=== PATIENT | female | born 1990 | race Caucasian/White ===

== ENCOUNTER 2016-04-24 16:51 | Outpatient (CLI) | payer MEDICAID ==
--- NOTE | 2016-04-24 17:58 | Non Stress Test Report ---
Non Stress Test Datetime Report Generated by CPN: 04/24/2016 17:57 DEMOGRAPHIC Test Number: 1 EGA NST: 34.0 INDICATION Indication for Study: Ordered by Provider MONITORING Monitor Explained: Monitor Explained; Test Explained; Patient Verbalized Understanding Time on Monitor: 04/24/2016 17:06 Time off Monitor: 04/24/2016 17:48 NST Duration: 42 NST INTERVENTIONS NST Interventions: PO Hydration; Reposition Patient Physician Notified NST: H. Julio, CNM BABY A: [id number] BABY A Movement : Present Contraction Frequency : None FHR Baseline : 120 Accelerations : 15X15 Decelerations : None Variability : Moderate 6-25bpm NST Review: Meets Criteria for Reactive NST NST Review and Verified By : Ildefonso Bellavancradha RNC NST Results: Reactive NST REPORT Report Trigger: Send Report
--- NOTE | 2016-04-24 18:01 | L&D Flow Sheet ---
LD Flowsheet Datetime Report Generated by CPN: 04/24/2016 18:00 Datetime: 04/24/2016 17:53 Patient Care Comments: Pt requesting prescription for Accucheck test strips. H. Julio, CNM off unit; pt wishes to wait on unit until provider returns. (Noris Vitrano, RN) Datetime: 04/24/2016 17:50 Instructional Method: Verbal; Written; Patient Instructed; Family/Support Person Instructed; Verbalized Understanding (Noris Vitrano, RN) Teaching Comments: Reviewed and signed kick counts. Pt encouraged to return for decreased FM, suspected SROM, leaking of fluid, bleeding like a period, regular contractions. Encouraged pt to keep all f/u appointments as scheduled. Pt verbalized understanding and denies questions. (Noris Yang, RN) Datetime: 04/24/2016 17:47 Monitor Mode: External; Palpation (Noris Yang, RN) Frequency (min): None (Noris Yang, RN) Resting Tone (Palpate): Relaxed (Noris Yang, RN) Contraction Comments: Irritability (Noris Yang, RN) Monitor Mode: External US (Norismigue Yang, RN) FHR Baseline Rate : 120 (Noris Rajeshano, RN) Variability: Moderate 6-25 bpm (Noris Rajeshano, RN) Accelerations: 15X15 (Noris Rajeshano, RN) Decelerations: None (Noris Celia, RN) Communication Comments: Juan Kim CNM on unit, reviewed strip. Reviewed pt history and VS. Orders received to d/c pt home for reactive NST. (Noris Yang, RN) Datetime: 04/24/2016 17:36 Monitor Interventions for FHR: Ultrasound Adjusted (Noris Vitrano, RN) Patient Position/Activity: Right Lateral (Noris Vitrano, RN) Datetime: 04/24/2016 17:31 Monitor Interventions for FHR: Ultrasound Adjusted (Noris Vitrano, RN) Datetime: 04/24/2016 17:08 NBP Sys/Silke/Mean (mmHg): 109 (QS system process) : 68 (QS system process) : 84 (QS system process) Pulse: 102 (QS system process) Respirations: 16 (Noris Vitrano, RN) Temperature (F): 98.8 (Noris Vitrano, RN) Temperature (C): 37.1 (QS system process) Temperature Route: Axillary (Noris Vitrano, RN) LaborFlag: Labor (QS system process) Datetime: 04/24/2016 17:06 Monitor Interventions for FHR: Ultrasound Adjusted (Noris Yang RN) Patient Position/Activity: Left Tilt; Semi-Fowlers (Noris Yang RN) Datetime: 04/24/2016 17:04 Stage of : Labor (Noris Yang RN) Patient Position/Activity: Left Tilt; Semi-Fowlers (Noris Yang RN) I/O Interventions: Clear Liquids Given (Noris Yang RN) Instructional Method: Verbal; Patient Instructed; Family/Support Person Instructed; Verbalized Understanding (Noris Yang RN) Plan of Care: Plan of Care Discussed (Noris Yang RN) Unit Routine: [place] to Room; Call Ya; Bed; Unit Personnel; Monitoring; Safety/Fall Risk Prevention; Bathroom Privileges (Noris Yang RN)
== END 2016-04-24 18:07 | disposition home or self-care (01) ==
LOC: LC 16:51
PROVIDERS: ATTEND Obstetrics & Gynecology
PROC: 4A1HXCZ Monitoring of Products of Conception, Cardiac Rate, External Approach (ICD-10-PCS; principal; 2016-04-24)
DX: Z34.93 Encounter for supervision of normal pregnancy, unspecified, third trimester (principal); Z36 Encounter for antenatal screening of mother; Z3A.34 34 weeks gestation of pregnancy
CPT/HCPCS: 59025

== ENCOUNTER 2016-05-20 05:03 | Inpatient (IN) | payer MEDICAID ==
[2016-05-18 10:36] LABS: ABSOLUTE EOSINOPHILS # (AUTO) 0.1 10^3/uL (0.0-0.6); ABSOLUTE MONOCYTES (AUTO) 0.5 10^3/uL (0.1-1.4); ABSOLUTE NEUT (AUTO) 6.3 10^3/uL (1.7-8.2); BASOPHILS % (AUTO) 0.1 % (0-2); EOSINOPHILS % (AUTO) 1.3 % (0-6); HEMATOCRIT 35.2 % (36.0-47.0); HEMOGLOBIN 11.4 g/dL (12.0-15.5); LYMPHOCYTES % (AUTO) 22.1 % (13-45); MEAN CORPUSCULAR HEMOGLOBIN 25.8 pg (27.0-33.4); MEAN CORPUSCULAR HGB CONC 32.6 g/dL (32.0-36.0); MEAN CORPUSCULAR VOLUME 79 fl (80-97); MONOCYTES % (AUTO) 5.4 % (3-13); RED BLOOD COUNT 4.43 10^6/uL (3.72-5.28); RED CELL DISTRIBUTION WIDTH 16.3 % (11.5-14.0); SEGMENTED NEUTROPHILS % (AUTO) 71.1 % (42-78); WHITE BLOOD COUNT 8.9 10^3/uL (4.0-10.5)
[2016-05-18 10:50] LABS: APPEARANCE,URINE SLIGHTLY-CLOUDY; BILIRUBIN,URINE NEGATIVE (NEGATIVE); GLUCOSE, URINE NEGATIVE (NEGATIVE); KETONES,URINE NEGATIVE (NEGATIVE); LEUKOCYTE ESTERASE,URINE NEGATIVE (NEGATIVE); NITRITE,URINE NEGATIVE (NEGATIVE); PROTEIN,URINE NEGATIVE (NEGATIVE); URINE SPECIFIC GRAVITY 1.012; UROBILINOGEN,URINE NEGATIVE mg/dL (<2.0)
[2016-05-18 11:20] LABS: URINE BARBITURATES SCREEN NEGATIVE; URINE OPIATES LOW NEGATIVE; URINE PHENCYCLIDINE SCREEN NEGATIVE
[2016-05-18 11:22] LABS: URINE METHADONE SCREEN NEGATIVE
[~2016-05-20 05:03] MED LIST: CEFAZOLIN 2 GM/D5W RTU 2 GM/50 ML RTUPB IV PRN; LACTATED RINGERS 1000 ML IV PRN; LIDOCAINE 0.5% INJ-PF (5 MG/ML) 50 ML SDV SUBCUT PRN; RINGERS SOLUTION,LACTATED 1,500 ML IV PRN
[2016-05-20] MEDS ORDERED: ONDANSETRON HCL INJ/PF 4 MG/2 ML SDV ONE (07:34)
[2016-05-20] MEDS ORDERED: OXYTOCIN 10 UNIT/ML VIAL ONE (07:34)
[2016-05-20] MEDS ORDERED: OXYTOCIN/NORMAL SALINE 20 UNIT/1,000 ML RTUINJ ONE (07:34)
[2016-05-20] MEDS ORDERED: FENTANYL CITRATE INJ/PF 100 MCG/2 ML AMPUL ONE (07:34)
[2016-05-20] MEDS ORDERED: MORPHINE SULFATE 10 MG/ML INJ ONE (07:35)
[2016-05-20] MEDS ORDERED: MIDAZOLAM 2 MG/2 ML INJ ONE (07:35)
[2016-05-20] MEDS ORDERED: OXYTOCIN/NORMAL SALINE 1,000 ML IV PRN (08:08)
[2016-05-20] MEDS ORDERED: SIMETHICONE 80 MG TAB.CHEW PO PRN (08:08)
[2016-05-20] MEDS ORDERED: RINGERS SOLUTION,LACTATED 1,000 ML IV PRN (08:08)
[2016-05-20] MEDS ORDERED: OXYCODONE-ACETAMINOPHEN 5-325 MG TABLET PO PRN ×2 (08:08)
[2016-05-20] MEDS ORDERED: PROMETHAZINE HCL INJ 25 MG/1 ML VIAL IV PRN (08:08)
[2016-05-20] MEDS ORDERED: DIPH/PERTUSS(ACELL)/TETANUS VAC/PF 0.5 ML SYR (>=10YO) IM PRN (08:08)
[2016-05-20] MEDS ORDERED: MEASLES,MUMPS&RUBELLA VACC/PF 0.5 ML VIAL SUBCUT PRN (08:08)
[2016-05-20] MEDS ORDERED: ACETAMINOPHEN 325 MG TABLET PO PRN (08:08)
[2016-05-20] MEDS ORDERED: ACETAMINOPHEN 100 ML IV ONE ×2 (09:34→09:45)
--- NOTE | 2016-05-20 10:00 | L&D Flow Sheet ---
LD Flowsheet Datetime Report Generated by CPN: 05/20/2016 10:00 Datetime: 05/20/2016 09:57 NBP Sys/Silke/Mean (mmHg): 131 (QS system process) : 60 (QS system process) : 87 (QS system process) Pulse: 72 (QS system process) Datetime: 05/20/2016 09:56 Pulse: 74 (QS system process) SpO2 (%): 96 (QS system process) Datetime: 05/20/2016 09:51 Pulse: 77 (QS system process) SpO2 (%): 96 (QS system process) Datetime: 05/20/2016 09:46 Pulse: 80 (QS system process) SpO2 (%): 97 (QS system process) Datetime: 05/20/2016 09:41 Stage of : Recovery (Aurora Pedroza RN) NBP Sys/Silke/Mean (mmHg): 117 (QS system process) : 62 (QS system process) : 79 (QS system process) Pulse: 74 (QS system process) Pulse: 78 (QS system process) SpO2 (%): 98 (QS system process) Pain Scale: 3 (Aurora Pedroza RN) Pain Presence: Intermittent (Aurora Pedroza RN) Pain Type: Cramping (Aurora Pedroza RN) Pain Location: Abdomen (Aurora Pedroza RN) Pain Goal: 0 (Aurora Pedroza RN) Pain Relief Measures: Pain Medication Given; Comfort Measures (Aurora Pedroza RN) Datetime: 05/20/2016 09:36 Pulse: 76 (QS system process) SpO2 (%): 99 (QS system process) Datetime: 05/20/2016 09:31 Pulse: 82 (QS system process) SpO2 (%): 98 (QS system process) Datetime: 05/20/2016 09:26 Pulse: 81 (QS system process) SpO2 (%): 97 (QS system process) Datetime: 05/20/2016 09:25 Stage of : Recovery (Aurora Pedroza RN) NBP Sys/Silke/Mean (mmHg): 117 (QS system process) : 55 (QS system process) : 78 (QS system process) Pulse: 75 (QS system process) Respirations: 17 (Aurora Pedroza RN) Pain Scale: 3 (Aurora Pedroza RN) Pain Presence: Intermittent (Aurora Pedroza RN) Pain Type: Cramping (Aurora Pedroza RN) Pain Location: Abdomen (Aurora Pedroza RN) Pain Goal: 0 (Aurora Pedroza RN) Pain Relief Measures: Comfort Measures (Aurora Pedroza RN) Datetime: 05/20/2016 09:21 Pulse: 84 (QS system process) SpO2 (%): 97 (QS system process) Datetime: 05/20/2016 09:20 NBP Sys/Silke/Mean (mmHg): 109 (QS system process) : 58 (QS system process) : 77 (QS system process) Pulse: 81 (QS system process) Datetime: 05/20/2016 09:16 Pulse: 96 (QS system process) Pulse: 98 (QS system process) SpO2 (%): 99 (QS system process) SpO2 (%): 89 (QS system process) Datetime: 05/20/2016 09:11 Pulse: 87 (QS system process) SpO2 (%): 97 (QS system process) Datetime: 05/20/2016 09:10 Stage of : Recovery (Aurora Pedroza RN) Pain Scale: 2 (Aurora Pedroza RN) Pain Presence: Intermittent (Aurora Pedroza RN) Pain Type: Cramping (Aurora Pedroza RN) Pain Location: Abdomen (Aurora Pedroza RN) Pain Goal: 0 (Aurora Pedroza RN) Pain Relief Measures: Comfort Measures (Aurora Pedroza RN) Datetime: 05/20/2016 09:08 NBP Sys/Silke/Mean (mmHg): 110 (QS system process) : 55 (QS system process) : 77 (QS system process) Pulse: 87 (QS system process) Datetime: 05/20/2016 09:06 Pulse: 86 (QS system process) Pulse: 133 (QS system process) SpO2 (%): 97 (QS system process) SpO2 (%): 82 (QS system process) Datetime: 05/20/2016 09:05 Stage of : Recovery (Aurora Marhefka, RN) Datetime: 05/20/2016 06:20 Bedside Blood Glucose: 74 (QS system process) LaborFlag: Labor (QS system process)
[2016-05-20] MEDS: DOCUSATE SODIUM 100 MG CAPSULE PO SCH ×2 (11:14→18:17)
[2016-05-20] MEDS: KETOROLAC TROMETHAMINE INJ/PF 30 MG/1 ML SDV IV SCH ×2 (11:15→18:17)
[2016-05-20] MEDS: PRENATAL VITAMIN W-O CA NO5/FE FUMARATE/FA CAPSULE PO SCH (11:15)
[2016-05-20] MEDS ORDERED: ALBUTEROL SULFATE HFA (90 MCG/PUFF) 8 GM MDI (1 MDI/ER DISP) IH PRN (11:40)
[2016-05-20] MEDS: HYDROMORPHONE HCL INJ/PF 2 MG/ML AMPULE IV PRN ×2 (12:59→22:35)
[2016-05-20] MEDS ORDERED: [UNRECOGNIZED DRUG - OTHER] PO SCH (18:00)
[2016-05-20] MEDS ORDERED: PRENATAL VIT PO SCH (18:00)
[2016-05-20] MEDS ORDERED: FERROUS FUM PO SCH (18:00)
--- NOTE | 2016-05-20 19:00 | L&D Flow Sheet ---
LD Flowsheet Datetime Report Generated by CPN: 05/20/2016 19:00 Datetime: 05/20/2016 10:41 Stage of : Recovery (Aurora Pedroza RN) NBP Sys/Silke/Mean (mmHg): 135 (QS system process) : 66 (QS system process) : 93 (QS system process) Pulse: 87 (QS system process) Pulse: 86 (QS system process) SpO2 (%): 96 (QS system process) Temperature (F): 98.8 (Aurora Pedroza RN) Temperature (C): 37.1 (QS system process) Temperature Route: Oral (Aurora Pedroza RN) Pain Scale: 3 (Aurora Pedroza RN) Pain Presence: Intermittent (Aurora Pedroza RN) Pain Type: Cramping (Aurora Pedroza RN) Pain Location: Abdomen (Aurora Pedroza RN) Pain Goal: 0 (Aurora Pedroza RN) Pain Relief Measures: Comfort Measures (Aurora Pedroza RN) Datetime: 05/20/2016 10:36 Pulse: 85 (QS system process) SpO2 (%): 96 (QS system process) Datetime: 05/20/2016 10:31 Pulse: 84 (QS system process) SpO2 (%): 94 (QS system process) Datetime: 05/20/2016 10:29 Pulse: 92 (QS system process) SpO2 (%): 93 (QS system process) Datetime: 05/20/2016 10:27 Stage of : Recovery (Aurora Pedroza RN) NBP Sys/Silke/Mean (mmHg): 128 (QS system process) : 65 (QS system process) : 90 (QS system process) Pulse: 88 (QS system process) Respirations: 15 (Aurora Pedroza RN) Pain Scale: 2 (Aurora Pedroza RN) Pain Presence: Intermittent (Aurora Pedroza RN) Pain Type: Cramping (Aurora Pedroza RN) Pain Location: Abdomen (Aurora Pedroza RN) Pain Goal: 0 (Aurora Pedroza RN) Pain Relief Measures: Comfort Measures (Aurora Pedroza RN) Datetime: 05/20/2016 10:26 Pulse: 89 (QS system process) SpO2 (%): 97 (QS system process) Datetime: 05/20/2016 10:23 Pulse: 82 (QS system process) SpO2 (%): 94 (QS system process) Datetime: 05/20/2016 10:21 Pulse: 80 (QS system process) SpO2 (%): 95 (QS system process) Datetime: 05/20/2016 10:18 Pulse: 81 (QS system process) SpO2 (%): 94 (QS system process) Datetime: 05/20/2016 10:16 Pulse: 79 (QS system process) SpO2 (%): 96 (QS system process) Datetime: 05/20/2016 10:11 Stage of : Recovery (Aurora Pedroza RN) NBP Sys/Silke/Mean (mmHg): 124 (QS system process) : 61 (QS system process) : 85 (QS system process) Pulse: 80 (QS system process) Pulse: 90 (QS system process) SpO2 (%): 96 (QS system process) Pain Scale: 2 (Aurora Pedroza RN) Pain Presence: Intermittent (Aurora Pedroza RN) Pain Type: Cramping (Aurora Pedroza RN) Pain Location: Abdomen (Aurora Pedroza RN) Pain Goal: 0 (Aurora Pedroza RN) Pain Relief Measures: Comfort Measures (Aurora Pedroza RN) Datetime: 05/20/2016 10:06 Pulse: 75 (QS system process) SpO2 (%): 95 (QS system process) Datetime: 05/20/2016 10:05 Pulse: 78 (QS system process) SpO2 (%): 94 (QS system process) Datetime: 05/20/2016 10:01 Pulse: 76 (QS system process) SpO2 (%): 95 (QS system process) Datetime: 05/20/2016 10:00 Pulse: 82 (QS system process) SpO2 (%): 93 (QS system process) Datetime: 05/20/2016 09:57 Stage of : Recovery (Aurora Pedroza RN) NBP Sys/Silke/Mean (mmHg): 131 (QS system process) : 60 (QS system process) : 87 (QS system process) Pulse: 72 (QS system process) Pain Scale: 2 (Aurora Pedroza RN) Pain Presence: Intermittent (Aurora Pedroza RN) Pain Type: Cramping (Annotations: Pt states her pain is gone with exception of fundal rubs, pt sleeping between fundal rubs) (Aurora Pedroza RN) Pain Location: Abdomen (Aurora Pedroza RN) Pain Goal: 0 (Aurora Pedroza RN) Pain Relief Measures: Comfort Measures (Aurora Pedroza RN) Datetime: 05/20/2016 09:56 Pulse: 74 (QS system process) SpO2 (%): 96 (QS system process) Datetime: 05/20/2016 09:51 Pulse: 77 (QS system process) SpO2 (%): 96 (QS system process) Datetime: 05/20/2016 09:46 Pulse: 80 (QS system process) SpO2 (%): 97 (QS system process) Datetime: 05/20/2016 09:41 Stage of : Recovery (Aurora Pedroza RN) NBP Sys/Silke/Mean (mmHg): 117 (QS system process) : 62 (QS system process) : 79 (QS system process) Pulse: 74 (QS system process) Pulse: 78 (QS system process) SpO2 (%): 98 (QS system process) Pain Scale: 3 (Aurora Pedroza RN) Pain Presence: Intermittent (Aurora Pedroza RN) Pain Type: Cramping (Aurora Pedroza RN) Pain Location: Abdomen (Aurora Pedroza RN) Pain Goal: 0 (Aurora Pedroza RN) Pain Relief Measures: Pain Medication Given; Comfort Measures (Aurora Pedroza RN) Datetime: 05/20/2016 09:36 Pulse: 76 (QS system process) SpO2 (%): 99 (QS system process) Datetime: 05/20/2016 09:31 Pulse: 82 (QS system process) SpO2 (%): 98 (QS system process) Datetime: 05/20/2016 09:26 Pulse: 81 (QS system process) SpO2 (%): 97 (QS system process) Datetime: 05/20/2016 09:25 Stage of : Recovery (Aurora Pedroza RN) NBP Sys/Silke/Mean (mmHg): 117 (QS system process) : 55 (QS system process) : 78 (QS system process) Pulse: 75 (QS system process) Respirations: 17 (Aurora Pedroza RN) Pain Scale: 3 (Aurora Pedroza RN) Pain Presence: Intermittent (Aurora Pedroza RN) Pain Type: Cramping (Aurora Pedroza RN) Pain Location: Abdomen (Aurora Pedroza RN) Pain Goal: 0 (Aurora Pedroza RN) Pain Relief Measures: Comfort Measures (Aurora Pedroza RN) Datetime: 05/20/2016 09:21 Pulse: 84 (QS system process) SpO2 (%): 97 (QS system process) Datetime: 05/20/2016 09:20 NBP Sys/Silke/Mean (mmHg): 109 (QS system process) : 58 (QS system process) : 77 (QS system process) Pulse: 81 (QS system process) Datetime: 05/20/2016 09:16 Pulse: 96 (QS system process) Pulse: 98 (QS system process) SpO2 (%): 99 (QS system process) SpO2 (%): 89 (QS system process) Datetime: 05/20/2016 09:11 Pulse: 87 (QS system process) SpO2 (%): 97 (QS system process) Datetime: 05/20/2016 09:10 Stage of : Recovery (Aurora Pedroza RN) Pain Scale: 2 (Aurora Pedroza RN) Pain Presence: Intermittent (Aurora Pedroza RN) Pain Type: Cramping (Aurora Pedroza RN) Pain Location: Abdomen (Aurora Pedroza RN) Pain Goal: 0 (Aurora Pedroza RN) Pain Relief Measures: Comfort Measures (Aurora Pedroza RN) Datetime: 05/20/2016 09:08 NBP Sys/Silke/Mean (mmHg): 110 (QS system process) : 55 (QS system process) : 77 (QS system process) Pulse: 87 (QS system process) Datetime: 05/20/2016 09:06 Pulse: 86 (QS system process) Pulse: 133 (QS system process) SpO2 (%): 97 (QS system process) SpO2 (%): 82 (QS system process) Datetime: 05/20/2016 09:05 Stage of : Recovery (Aurora Pedroza, RN)
[2016-05-21] MEDS: KETOROLAC TROMETHAMINE INJ/PF 30 MG/1 ML SDV IV SCH (01:59)
[2016-05-21] MEDS: ACETAMINOPHEN WITH CODEINE #3 TABLET PO PRN ×2 (05:02→21:42)
--- NOTE | 2016-05-21 06:00 | L&D General Admission ---
General Admit Datetime Report Generated by CPN: 05/21/2016 06:00 INFORMATION Patient Age: 25 (03/30/2018 12:31:QS system process) EDC: 06/05/2016 00:00 (04/24/2016 17:00:Noris Yang RN) : 2 (04/24/2016 17:00:Noris Yang RN) Term: 1 (04/24/2016 17:00:Noris Yang RN) : 0 (04/24/2016 17:00:Noris Yang RN) Spontaneous Abortions: 0 (04/24/2016 17:00:Noris Yang RN) Induced Abortions: 0 (04/24/2016 17:00:Noris Yang RN) Livin (04/24/2016 17:00:Noris Yang RN) Cesareans: 1 (04/24/2016 17:00:Noris Yang RN) VBACs: 0 (04/24/2016 17:00:Noris Yang RN) Ectopic: 0 (04/24/2016 17:00:Noris Yang RN) Multiple Births: 0 (04/24/2016 17:00:Noris Yang RN) CARE 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[facility] (04/24/2016 17:00:Noris Yang RN) Month of 1st Visit: 10/2015 (04/24/2016 17:00:Noris Yang RN) Adequate Care: Yes (04/24/2016 17:00:Noris Yang RN) Prepregnancy Weight (lb): 255 (04/24/2016 17:00:Noris Yang RN) Prepregnancy Weight (kg): 115.9 (04/24/2016 17:00:QS system process) Height (in): 65 (04/24/2016 17:26:QS system process) ALLERGIES Medication Allergy: Yes (04/24/2016 17:00:Noris Yang RN) Medication Allergies: hydrocodone bitartrate/MO/VOMITING (04/24/2016); oxycodone HCl/MO/VOMITING (04/24/2016); Penicillins/SV/n and v,sob,jose g (05/18/2016) (05/20/2016 05:04:QS system process) Latex Allergy: Latex Allergies (04/24/2016 17:00:Noris Yang RN) Food Allergies: N/A (04/24/2016 17:00:Noris Yang RN) Environmental Allergies: N/A (04/24/2016 17:00:Noris Yang RN) COMMUNICATION Primary Language: Japanese (04/24/2016 17:00:Noris Yang RN) Medical Tx Preferred Language: Japanese (04/24/2016 17:00:Noris Yang RN) Communication Barrier(s): None (04/24/2016 17:00:Noris Yang RN) DEMOGRAPHICS Address: [place] [address] (03/30/2016 12:31:QS system process) Zipcode: [phone] (03/30/2016 12:31:QS system process) Home (03/30/2016 12:31:QS system process) N: [id number] (03/30/2016 12:31:QS system process) Next of Kin Name: VIK MALIK (03/30/2016 12:31:QS system process) Next of Kin (03/30/2016 12:31:QS system process) Next of Kin Relationship: OR (03/30/2016 12:31:QS system process) Date of : 1990 (03/30/2016 12:31:QS system process) Marital Status: (03/30/2016 12:31:QS system process) Sex: Female (03/30/2016 12:31:QS system process) Race: (03/30/2016 12:31:QS system process) Ethnicity: Non- or (03/30/2016 12:31:QS system process) [employer]aritan: None (03/30/2016 12:31:QS system process) DRUG AND ALCOHOL USE Alcohol: No (04/24/2016 17:00:Noris Yang RN) Cigarettes: Current Everyday Smoker. [id number] (04/24/2016 17:00:Noris Yang RN) Average Cigarettes Smoked: 5 - 10 per day (04/24/2016 17:00:Noris Yang RN) Advised to Stop Smoking: Yes (04/24/2016 17:00:Noris Yang RN) Marijuana: No (04/24/2016 17:00:Noris Yang RN) Cocaine: No (04/24/2016 17:00:Noris Vitrano, RN) Other Illicit Drugs: No (04/24/2016 17:00:Noris Vitrano, RN) VACCINE HISTORY Influenza Vaccine: Yes (04/24/2016 17:00:Noris Rajeshano, RN) Pneumococcal Vaccine: No (04/24/2016 17:00:Noris Vitrano, RN) Tetanus Vaccine: Uncertain (04/24/2016 17:00:Noris Vitrano, RN) Tdap Vaccine: Uncertain (04/24/2016 17:00:Noris Vitrano, RN) Hepatitis B Vaccine: Uncertain (04/24/2016 17:00:Noris Vitrano, RN) Media Liaison Officer: Carina (04/24/2016 17:00:Noris Yang RN) Feeding Preference: Formula (04/24/2016 17:00:Noris Yang RN) Benefit of Breast Feed Discussed: Yes (04/24/2016 17:00:Noris Yang RN) Circumcision: Yes (04/24/2016 17:00:Noris Yang RN) Classes Attended: No (04/24/2016 17:00:Noris Yang RN) Tubal Ligation: No (04/24/2016 17:00:Noris Yang RN) Tubal Authorization Signed: N/A (04/24/2016 17:00:Noris Yang RN) Consent: N/A (04/24/2016 17:00:Noris Yang RN) Consent Signed: N/A (04/24/2016 17:00:Noris Yang RN) Pain Management Plans: Spinal (04/24/2016 17:00:Noris Yang RN) Plans for Labor and Delivery: None (04/24/2016 17:00:Noris Yang RN) Support Person: Vik Viveros (04/24/2016 17:00:Noris Yang RN) Support Person Relationship: (04/24/2016 17:00:Noris Yang RN) Cultural/Spritual Practice: No (04/24/2016 17:00:Noris Yang RN) Spir/Cult Dietary Needs: No (04/24/2016 17:00:Noris Yang RN) LIVING SITUATION/DISCHARGE PLAN Living Arrangements: House (04/24/2016 17:00:Noris Yang RN) Adequate Access to:: Electric; Heat; Refrigeration; Plumbing/Running water; Phone; Transportation (04/24/2016 17:00:Noris Yang RN) WIC Program: Yes (04/24/2016 17:00:Noris Yang RN) Discharge Animal Shelter Supervisor Person: (04/24/2016 17:00:Noris Yang RN) Person to Help after Discharge: (04/24/2016 17:00:Noris Yang RN) Currently Using Commun Resources: Yes (04/24/2016 17:00:Noris Yang RN) Specify Current Resource Used: Food [place], Medicaid (04/24/2016 17:00:Noris Yang RN) Outside Agency/Electrode Cleaner: No (04/24/2016 17:00:Noris Yang RN) Car Seat for Discharge: Yes (04/24/2016 17:00:Noris Yang RN) Adoption Requested: No (04/24/2016 17:00:oNris Yang RN) Pt Contact w/infant Post : N/A (04/24/2016 17:00:Noris Yang RN) LABS Blood Type: O Positive (04/24/2016 17:00:Noris Yang RN) Antibody Screen: Negative (04/24/2016 17:00:Noris Yang RN) Rho(G) this : Not Applicable (04/24/2016 17:00:Noris Yang RN) Hemoglobin: 12.0-15.5 g/dL (05/21/2016 06:00:QS system process) Hematocrit: 35.2 L (05/18/2016 09:40:QS system process) MCV: 79 L (05/18/2016 09:40:QS system process) RPR/VDRL: Nonreactive (04/24/2016 17:00:Noris Yang RN) HIV Exposure Test: Negative (04/24/2016 17:00:Noris Yang RN) Hepatitis B: Negative (04/24/2016 17:00:Noris Yang RN) Rubella: Immune (04/24/2016 17:00:Noris Yang RN) OB/PREVIOUS HISTORY History of Previous : Yes (04/24/2016 17:00:Noris Yang RN) History of Gestational Diabetes: Yes (04/24/2016 17:00:Noris Yang RN) History of PIH: No (04/24/2016 17:00:Noris Yang RN) History of Incompetent Cervix: No (04/24/2016 17:00:Noris Yang RN) History of Placenta Previa/Abrup: No (04/24/2016 17:00:Noris Yang RN) History of Macrosomia: No (04/24/2016 17:00:Noris Yang RN) History of IUGR: No (04/24/2016 17:00:Noris Yang RN) History of Hemorrhage: No (04/24/2016 17:00:Noris Yang RN) History of Loss/Stillborn: No (Annotations: Data stored by FARHANA on behalf of user) (04/24/2016 17:00:Noris Yang RN) History of : No (04/24/2016 17:00:Noris Yang RN) History of D (Rh) Sensitization: No (04/24/2016 17:00:Noris Yang RN) History Recurrent Loss/Stillborn: No (Annotations: Data stored by FARHANA on behalf of user) (04/24/2016 17:00:Noris Yang RN) History Depression/PP Depression: Yes (04/24/2016 17:00:Noris Yang RN) History of Uterine Anomaly/BAILEY: No (04/24/2016 17:00:Noris Yang RN) History of Infertility: No (04/24/2016 17:00:Noris Yang RN) History of ART Treatment: No (04/24/2016 17:00:Noris Yang RN) History of BAILEY: No (04/24/2016 17:00:Noris Yang RN) Comments Obstetrical History: G1: 2015 Emergent C/Section 39.5 weeks, baby boy; Stillbirth G2: Current; GDM on Glyburide; Polyhydramnios (04/24/2016 17:00:Noris Yang RN) MEDICAL HISTORY Med Hx Diabetes: Yes (04/24/2016 17:00:Noris Yang RN) Diabetes Type: Gestational Diabetes (04/24/2016 17:00:Noris Yang RN) Med Hx Hypertension: No (04/24/2016 17:00:Noris Yang RN) Med Hx Heart Disease: No (04/24/2016 17:00:Noris Yang RN) Med Hx Autoimmune Disorder: No (04/24/2016 17:00:Noris Yang RN) Med Hx Kidney Disease/UTI: No (04/24/2016 17:00:Noris Yang RN) Med Hx Neurologic/Epilepsy: No (04/24/2016 17:00:Noris Yang RN) Med Hx Psychiatric Disorders: Yes (04/24/2016 17:00:Noris Yang RN) Med Hx Hepatitis/Liver Disease: No (04/24/2016 17:00:Noris Yang RN) Med Hx Varicosities/Phlebitis: No (04/24/2016 17:00:Noris Yang RN) Med Hx Thyroid Dysfunction: No (04/24/2016 17:00:Noris Yang RN) Med Hx Trauma/Violence: No (04/24/2016 17:00:Noris Yang RN) Med Hx Blood Transfusion: No (04/24/2016 17:00:Noris Yang RN) Med Hx Pulmonary (Asthma,TB): Yes (04/24/2016 17:00:Noris Yang RN) Med Hx Breast: No (04/24/2016 17:00:Noris Yang RN) Med Hx ICE CREAM SCOOPER Surgery: No (04/24/2016 17:00:Noris Yang RN) Med Hx Hospitalization/Surgery: Yes (04/24/2016 17:00:Noris Yang RN) Med Hx Anesthetic Complications: No (04/24/2016 17:00:Noris Yang RN) Med Hx Abnormal Pap Smear: No (04/24/2016 17:00:Noris Yang RN) Other Medical Diseases: Yes (04/24/2016 17:00:Noris Yang RN) Med Hx Significant Family Hx: No (04/24/2016 17:00:Noris Yang RN) Details of Med/Surg Hx: GDM: Glyburide Psychiatric: Depression/Anxiety Asthma: Albuterol PRN Surgery: C/S 2014; Gall bladder removed 2008 Other: Poor dental care; Current everyday smoker (04/24/2016 17:00:Noris Yang RN) INFECTIOUS HISTORY Inf Hx Gonorrhea: No (04/24/2016 17:00:Noris Yang RN) Inf Hx Chlamydia: No (04/24/2016 17:00:Noris Yang RN) Inf Hx Syphilis: No (04/24/2016 17:00:Noris Yang RN) Inf Hx HIV/AIDS: No (04/24/2016 17:00:Noris Yang RN) Inf Hx Human Papilloma Virus: No (04/24/2016 17:00:Noris Yang RN) Inf Hx Pt/Partner Genital Herpes: No (04/24/2016 17:00:Noris Yang RN) Inf Hx Tuberculosis/Exposure: No (04/24/2016 17:00:Noris Yang RN) Inf Hx Hepatitis B,C: No (04/24/2016 17:00:Noris Yang RN) Inf Hx Rash or Viral Illness: No (04/24/2016 17:00:Noris Yang RN) GENETIC HISTORY Gen Hx Age >=35 at [facility]: No (04/24/2016 17:00:Noris Yang RN) Gen Hx Thalassemia: No (04/24/2016 17:00:Noris Yang RN) Gen Hx Congenital Heart Defect: No (04/24/2016 17:00:Noris Yang RN) Gen Hx Neural Tube Defect: No (04/24/2016 17:00:Noris Yang RN) Gen Hx Down's Syndrome: No (04/24/2016 17:00:Noris Yang RN) Gen Hx Sravan-Sachs: No (04/24/2016 17:00:Noris Yang RN) Gen Hx David: No (04/24/2016 17:00:Noris Yang RN) Gen Hx Familial Dysautonomia: No (04/24/2016 17:00:Noris Yang RN) Gen Hx Sickle Cell Disease/Trait: No (04/24/2016 17:00:Noris Yang RN) Gen Hx Hemophilia/Blood Disorder: No (04/24/2016 17:00:Noris Yang RN) Gen Hx Muscular Dystrophy: No (04/24/2016 17:00:Noris Yang RN) Gen Hx Cystic Fibrosis: No (04/24/2016 17:00:Noris Yang RN) Gen Hx Huntingtons Chorea: No (04/24/2016 17:00:Noris Yang RN) Gen Hx Mental Retardation/Autism: No (04/24/2016 17:00:Noris Yang RN) Gen Hx Tested for Fragile X: No (04/24/2016 17:00:Noris Yang RN) Gen Hx Other Inher/Chromosomal: No (04/24/2016 17:00:Noris Yang RN) Gen Hx Maternal Metabolic DO: No (04/24/2016 17:00:Noris Yang RN) Gen Hx Pt Father or FOB Defect: No (04/24/2016 17:00:Noris Yang RN) Gen Hx Other Genetic History: No (04/24/2016 17:00:Noris Yang RN) Gen Hx Drugs/Meds since LMP: No (04/24/2016 17:00:Noris Yang RN)
[2016-05-21 07:12] LABS: HEMATOCRIT 27.3 % (36.0-47.0); HGB HCT DIFFERENCE -0.3; MEAN CORPUSCULAR HGB CONC 32.8 g/dL (32.0-36.0); MEAN CORPUSCULAR VOLUME 79 fl (80-97); RED BLOOD COUNT 3.45 10^6/uL (3.72-5.28); RED CELL DISTRIBUTION WIDTH 16.3 % (11.5-14.0); WHITE BLOOD COUNT 7.5 10^3/uL (4.0-10.5)
[2016-05-21] MEDS: PRENATAL VITAMIN W-O CA NO5/FE FUMARATE/FA CAPSULE PO SCH (10:39)
[2016-05-21] MEDS: DOCUSATE SODIUM 100 MG CAPSULE PO SCH ×2 (10:39→17:17)
--- NOTE | 2016-05-21 11:13 | PDOC PROGRESS REPORT ---
Subjective-OB Subjective: Post Delivery Day: 26 year old. Denies any needs at this time Physical Exam (OB) Vital Signs: Temp Pulse Resp BP Pulse Ox 98.5 F 110 H 15 119/71 98 05/21/16 08:00 05/21/16 08:00 05/21/16 08:00 05/21/16 08:00 05/21/16 08:00 Intake & Output 05/20/16 05/21/16 05/22/16 06:59 06:59 06:59 Intake Total 400 Output Total 2950 Balance -2550 - Dressing Removed: No - opsite - Lochia Lochia Amount: Small 10-25 ml Lochia Color: Rubra/Red - Abdomen Description: Soft, Round Hernia Present: No Bowel Sounds: Normoactive Flatus Presence: Present Stool: No Fundal Description: Firm, Midline Fundal Height: u/u - u/2 Objective-Diagnostic Laboratory: 05/21/16 06:29 05/21/16 06:29 WBC 7.5 RBC 3.45 L Hgb 9.0 L D Hct 27.3 L MCV 79 L MCH 26.0 L MCHC 32.8 RDW 16.3 H Plt Count 180
[2016-05-21] MEDS: IBUPROFEN 800 MG TABLET PO SCH ×2 (11:16→17:17)
[2016-05-21] MEDS: NICOTINE 14 MG/24 HR PATCH.TD24 TD SCH (11:16)
[2016-05-21] MEDS ORDERED: IBUPROFEN 800 MG TABLET PO SCH (18:00)
[2016-05-22] MEDS: IBUPROFEN 800 MG TABLET PO SCH ×3 (00:12→12:46)
[2016-05-22] MEDS: DOCUSATE SODIUM 100 MG CAPSULE PO SCH (10:38)
[2016-05-22] MEDS: PRENATAL VITAMIN W-O CA NO5/FE FUMARATE/FA CAPSULE PO SCH (10:38)
[2016-05-22] MEDS: NICOTINE 14 MG/24 HR PATCH.TD24 TD SCH (10:39)
--- NOTE | 2016-05-22 10:56 | PDOC DISCHARGE SUMMARY ---
Final Diagnosis Discharge Date: 05/22/16 - Final Diagnosis (1) delivery delivered Is this a current diagnosis for this admission?: Yes (2) GDM (gestational diabetes mellitus) Is this a current diagnosis for this admission?: Yes (3) History of stillborn Is this a current diagnosis for this admission?: Yes (4) Late onset care Is this a current diagnosis for this admission?: Yes (5) Obesity Is this a current diagnosis for this admission?: Yes (6) Is this a current diagnosis for this admission?: Yes (7) Anemia Is this a current diagnosis for this admission?: Yes Discharge Data - Discharge Medication Home Medications: Albuterol Sulfate [Albuterol Sulfate Hfa] 1 - 2 puff IH Q4 PRN 03/15/14 Vit#96/Ferrous Fum/FA [ Tablet] 2 tab PO BID 03/23/14 Ranitidine HCl [Zantac 150 mg Tablet] 150 mg PO BID 05/18/16 Docusate Sodium [Colace 100 mg Capsule] 100 mg PO BID #60 capsule 05/22/16 Ibuprofen [Motrin 800 mg Tablet] 800 mg PO Q6 #60 tablet 05/22/16 Gestational Age: 38 Procedures: NST Intrapartum Procedure(s): : Low Cervical, Transverse - [place] Data Baby 1 Male at 1 minute: 8 at 5 minutes: 9 Weight: 3.459 kg Home with Mother: Yes Complications: No - Diagnosis Test Laboratory: Temp Pulse Resp BP Pulse Ox 98.0 F 90 16 129/83 H 98 05/22/16 08:16 05/22/16 08:16 05/22/16 08:16 05/22/16 08:16 05/22/16 08:16 05/18/16 05/18/16 05/21/16 09:40 09:45 06:29 RBC 4.43 3.45 L Hgb 11.4 L 9.0 L D Hct 35.2 L 27.3 L Urine Opiates Screen NEGATIVE - Discharge information/Instructions Discharge Activity: Activity As Tolerated, No Driving, No Lifting Over 10 Pounds , No Lifting/Push/Pulling, Pelvic Rest, No tub bath Discharge Diet: Regular Disposition: HOME, SELF-CARE Follow up with: [facility] in: 1, Weeks
[2016-05-22 11:29] VITALS: BP 116/67
--- NOTE | 2016-05-22 11:43 | Operative Report ---
Operative Report DATE OF SURGERY: 05/20/16 PREOPERATIVE DIAGNOSIS: Repeat to prevent risk of uterine rupture. History of previous stillbirth with first . POSTOPERATIVE DIAGNOSIS: Same OPERATION: Repeat via low transverse uterine incision SURGEON: REYES KNIGHT POLE TRUCK DRIVER: OR staff ANESTHESIA: Epidural TISSUE REMOVED OR ALTERED: Placenta COMPLICATIONS: None ESTIMATED BLOOD LOSS: 2 50 mL INTRAOPERATIVE FINDINGS: Viable male Apgars 8 and 9 PROCEDURE: Patient was taken to the OR and placed in supine position after her spinal anesthesia. She is prepared and draped in sterile fashion. Mederos was placed for drainage of the bladder. Low transverse incision was made and carried down the level of the fascia. The fascial incision was made with knife and extended bilaterally with curved Bartlett scissors. The fascia was off the rectus muscles using sharp and blunt dissection. The rectus muscles are in the midline. The peritoneum was entered without incident. Bladder blade was placed in uterine segment was identified. A low transverse incision was made creating a bladder flap. Bladder blade was placed low transverse uterine incision was made with the c-safe knife and extended with fingertips. The baby was delivered with some fundal pressure. Mouth and nose were suctioned free. The cord is doubly clamped and cut. Baby is passed off to the mold builder in attendance. The placenta was manually extracted with trailing membranes. The uterus was externalized wrapped in a moist lap sponge. Uterine contents wiped free. Uterus was closed with a running locking layer of 0 chromic suture using the second layer to imbricate the first completing a double layer closure of the uterus. The serosa was closed with a running 2-0 chromic stitch. The pelvis was irrigated and suctioned free of fluid the uterus was replaced in the abdomen. The abdominal wall peritoneum was closed with running 2-0 chromic stitch. Fascia was closed with a running 0 Vicryl in 2 segments. Claribel's layer was brought together with 0 plain gut stitch and the skin was closed with running subcuticular 4-0 undyed Vicryl stitch. The wound was dressed mother and baby did well.
== END 2016-05-22 14:23 | disposition home or self-care (01) | DRG 765 ==
LOC: 2S 05:03
PROVIDERS: ADMIT Obstetrics & Gynecology; ATTEND Obstetrics & Gynecology
PROC: 4A1HXCZ Monitoring of Products of Conception, Cardiac Rate, External Approach (ICD-10-PCS; 2016-05-20)
PROC: 10D00Z1 Extraction of Products of Conception, Low, Open Approach (ICD-10-PCS; principal; 2016-05-20 07:45)
PROC: 3E0234Z Introduction of Serum, Toxoid and Vaccine into Muscle, Percutaneous Approach (ICD-10-PCS; 2016-05-22)
DX: O34.211 Maternal care for low transverse scar from previous cesarean delivery (principal); Z68.41 Body mass index [BMI] 40.0-44.9, adult; O24.425 Gestational diabetes mellitus in childbirth, controlled by oral hypoglycemic drugs; O99.214 Obesity complicating childbirth; E66.9 Obesity, unspecified; O99.02 Anemia complicating childbirth; O99.52 Diseases of the respiratory system complicating childbirth; D64.9 Anemia, unspecified; J45.909 Unspecified asthma, uncomplicated; J44.9 Chronic obstructive pulmonary disease, unspecified; O99.334 Smoking (tobacco) complicating childbirth; F17.210 Nicotine dependence, cigarettes, uncomplicated; Z3A.37 37 weeks gestation of pregnancy; Z37.0 Single live birth; Z83.3 Family history of diabetes mellitus; Z88.0 Allergy status to penicillin; Z88.8 Allergy status to other drugs, medicaments and biological substances; Z23 Encounter for immunization
CPT/HCPCS: 1961; 36415; 59025; 80307; 81001; 82962; 85025; 85027; 86850; 86900; 86901; 90715; 94799; J0131; J1170; J1885; J2250; J2270; J2405; J2590; J3010; J7120

== ENCOUNTER 2016-06-17 14:50 | Emergency (ER) | payer MEDICAID ==
[2016-06-17 14:56] VITALS: BP 130/87
--- NOTE | 2016-06-17 15:07 | ER Document Report ---
ED Medical Screen (RME) - General TRAVEL OUTSIDE OF THE [place] IN LAST 30 DAYS: No - General Stated Complaint: POSSIABLE ARMPIT INGROWN HAIR Notes: 26 yo female c/o abscess to left axilla x 5 days. + drainage no fever (SANIYA ROSENTHAL) - Related Data Allergies/Adverse Reactions: Penicillins Allergy (Severe, Verified 06/17/16 15:05) n and v,sob,hallucinations oxycodone HCl [From Percocet] Allergy (Intermediate, Verified 06/17/16 15:05) VOMITING Past Medical History Renal/ Medical History: Reports: Hx Kidney Stones Psychiatric Medical History: Reports: Hx Depression Past Surgical History: Reports: Hx Cholecystectomy - Immunizations Immunizations up to date: Yes Hx Diphtheria, Pertussis, Tetanus Vaccination: Yes Doctor's Discharge - Discharge Clinical Impression: Abscess of left axilla Condition: Good Disposition: HOME, SELF-CARE Additional Instructions: ABSCESS: You have an abscess (boil). This a pus-forming infection, usually due to staph. Some boils may be left to drain on their own, but most require lancing. From the time the tender lump first appears, it may be three or four days before the abscess is ready to darrell. Local heat and rest help at this stage of treatment. An antibiotic may prevent spread of the infection. Once the abscess is opened, packing may be placed into it. This is done so pus is not sealed inside by premature closure of the cavity. The packing will be removed at your follow-up visit or you may be advised to remove it yourself at home. Sometimes this packing must be replaced a few times during healing. The wound will heal with surprisingly little scar. Depending on the size and location of an abscess, healing can take one to four weeks. You may shower and wash the area around the incision site two or three times a day. Antibiotics may be prescribed, but are usually not necessary after an abscess has been drained. If you develop fever, chills, worsening pain, or increasing swelling in the area, call the doctor or return immediately. POST INCISION AND DRAINAGE: You have had an incision made to allow drainage of an abscess. The incision must remain open so that pus and debris can drain from the wound. If the abscess cavity is large, packing is placed. This keeps the tissues from collapsing and trapping pus inside, while the body shrinks the cavity. The packing may need to be replaced every day or two. The physician will instruct you on the packing. Keep a bulky dressing over the area. Replace it if it becomes saturated with blood or pus. Do not disturb the packing (if present). You may shower and cleanse the area with gentle soap and warm water two or three times a day. Local warmth may be soothing, and may promote faster healing. Return if you develop high fever or chills, or if you note spreading redness, increasing swelling, or increasing tenderness. ORAL NARCOTIC MEDICATION: You have been given a prescription for pain control. This medication is a narcotic. It's best taken with food, as nausea can result if taken on an empty stomach. Don't operate machinery or drive within six hours of taking this medication. Do not combine this medicine with alcohol, or with any medication which can cause sedation (such as cold tablets or sleeping pills) unless you get permission from the physician. Narcotics tend to cause constipation. If possible, drink plenty of fluids and eat a diet high in fiber and fruits. CEPHALEXIN: The antibiotic you've been prescribed is a member of the cephalosporin class. This type of antibiotic covers a wide variety of infections, including those of the skin, lungs, and urinary tract. It's useful for staph infections. This antibiotic is slightly similar to the penicillin family. In rare cases , a person who is allergic to penicillin will also be allergic to this medication. If you have had a severe allergic reaction to penicillin, and have not taken this antibiotic since that time, notify your doctor. Antibiotics which cover many germs ("broad spectrum" antibiotics) are more likely to cause diarrhea or "yeast" infections. Women prone to vaginal yeast problems may suffer an attack after taking this antibiotic. In infants, oral thrush (white spots "stuck" on the cheek) or yeast diaper rash may result. See your doctor if these problems occur. Call at once if you develop itching, hives , shortness of breath, or lightheadedness. TRIMETHOPRIM-SULFA: You have been given a prescription for trimethoprim-sulfa (TMS, Septra, Bactrim). This is a combination antibiotic of the sulfa class, often used for urinary tract infections, middle ear infections, bronchitis, shigella intestinal infection, and Pneumocystis pneumonia. TMS is usually well-tolerated. Occasional side effects include nausea and decreased appetite. Septra is not recommended for infants less than two months of age. Do not take this medication if you have experienced severe side effects or allergy to sulfa medicine. You should stop this medicine at once and contact your physician if you develop any rash, joint pain, shortness of breath, bruising, or jaundice ( yellow color in the skin), or if you develop any other new or unusual symptoms. FOLLOW-UP CARE: Most simple abscesses will not require a follow up visit. If you had packing placed in the abscess, remove it as instructed by the physician. If you have been referred to a physician for follow-up care, call the physicians office for an appointment as you were instructed or within the next two days. If you experience worsening or a significant change in your symptoms, return to the Emergency Department at any time for re-evaluation. Return to the emergency room in 48 hours to have your abscess reexamined and possibly repacked. Prescriptions: Hydrocodone/Acetaminophen [[place] 5-325 mg Tablet] 1 tab PO Q6HP PRN #14 tablet PRN Reason: For Pain Ondansetron [Zofran Odt 4 mg Tablet] 4 mg PO Q6HP PRN #30 tab.rapdis PRN Reason: Cephalexin Monohydrate [Keflex 500 mg Capsule] 500 mg PO QID #20 capsule Sulfamethoxazole/Trimethoprim [Septra-Ds 800-160 mg Tablet] 1 tab PO BID #20 tablet Referrals: GORGE SANON MD [Primary Care Provider] - Follow up as needed
--- NOTE | 2016-06-17 16:36 | ER Document Report ---
ED Skin Rash/Insect Bite/Abscs - General Chief Complaint: Abscess Stated Complaint: POSSIABLE ARMPIT INGROWN HAIR Time seen by provider: 16:36 Mode of Arrival: Ambulatory Information source: Patient Notes: 26-year-old female presents to ED for abscess to the left axilla TRAVEL OUTSIDE OF THE [place] IN LAST 30 DAYS: No - HPI Patient complains to provider of: Tender/swollen area Onset: Last week Onset/Duration: Gradual Quality of pain: Sharp, Throbbing Severity: Moderate Pain Level: 3 Skin Character: Abscess Quality of rash: Painful Exacerbated by: Movement Relieved by: Denies Similar symptoms previously: Yes Recently seen / treated by doctor: No - Related Data Allergies/Adverse Reactions: Penicillins Allergy (Severe, Verified 06/17/16 15:05) n and v,sob,hallucinations oxycodone HCl [From Percocet] Allergy (Intermediate, Verified 06/17/16 15:05) VOMITING Past Medical History - General Information source: Patient - Social History Smoking Status: Current Every Day Smoker Cigarette use (# per day): Yes - 8 cigarettes a day Chew tobacco use (# tins/day): No Smoking Education Provided: Yes - less than 2 minutes Frequency of alcohol use: None Drug Abuse: None Occupation: none Lives with: Family Family History: Arthritis, DM, Hyperlipidemia, Hypertension Patient has suicidal ideation: No Patient has homicidal ideation: No - Past Medical History Cardiac Medical History: Reports: None Pulmonary Medical History: Reports: None EENT Medical History: Reports: None Neurological Medical History: Reports: None Endocrine Medical History: Reports: None Renal/ Medical History: Reports: Hx Kidney Stones Malignancy Medical History: Reports: None GI Medical History: Reports: None Musculoskeltal Medical History: Reports None Skin Medical History: Reports Hx Cellulitis Psychiatric Medical History: Reports: Hx Depression Traumatic Medical History: Reports: None Infectious Medical History: Reports: None Past Surgical History: Reports: Hx Section, Hx Cholecystectomy - Immunizations Immunizations up to date: Yes Hx Diphtheria, Pertussis, Tetanus Vaccination: Yes Review of Systems - Review of Systems Constitutional: No symptoms reported EENT: No symptoms reported Cardiovascular: No symptoms reported Respiratory: No symptoms reported Gastrointestinal: No symptoms reported Genitourinary: No symptoms reported Female Genitourinary: No symptoms reported Musculoskeletal: No symptoms reported Skin: Other - Abscess left axilla Hematologic/Lymphatic: No symptoms reported Neurological/Psychological: No symptoms reported -: Yes All other systems reviewed and negative Physical Exam - Vital signs Vitals: Temp Pulse Resp BP Pulse Ox 98.6 F 82 16 130/87 H 99 06/17/16 14:55 06/17/16 14:55 06/17/16 14:55 06/17/16 14:55 06/17/16 14:55 Interpretation: Normal - General General appearance: Appears well, Alert - HEENT Head: Normocephalic, Atraumatic Eyes: Normal Pupils: PERRL - Respiratory Respiratory status: No respiratory distress Chest status: Nontender Breath sounds: Normal Chest palpation: Normal - Cardiovascular Rhythm: Regular Heart sounds: Normal auscultation Murmur: No - Abdominal Inspection: Normal Distension: No distension Bowel sounds: Normal Tenderness: Nontender Organomegaly: No organomegaly - Back Back: Normal, Nontender - Extremities General upper extremity: Normal inspection, Nontender, Normal color, Normal ROM , Normal temperature General lower extremity: Normal inspection, Nontender, Normal color, Normal ROM , Normal temperature, Normal weight bearing. No: Jose Miguel's sign - Neurological Neuro grossly intact: Yes Cognition: Normal Orientation: AAOx4 [place] Coma Scale Eye Opening: Spontaneous [place] Coma Scale Verbal: Oriented [place] Coma Scale Motor: Obeys Commands [place] Coma Scale Total: 15 Speech: Normal Motor strength normal: LUE, RUE, LLE, RLE Sensory: Normal - Psychological Associated symptoms: Normal affect, Normal mood - Skin Skin Temperature: Warm Skin Moisture: Dry Skin Color: Normal Skin irregularity: Abscess Location of irregularity: Other Irregularity with: Swelling - Left axilla, Tenderness, Warmth Course - Re-evaluation Re-evalutation: 06/17/16 17:40 Patient started on Septra and Keflex, patient given [place] for pain with Zofran for the nausea. Patient will be discharged home with prescriptions of each. Patient instructed to return to the ED in 48 hours to have abscess reexamined. - Vital Signs Vital signs: Temp Pulse Resp BP Pulse Ox 98.6 F 82 16 130/87 H 99 06/17/16 14:55 06/17/16 14:55 06/17/16 14:55 06/17/16 14:55 06/17/16 14:55 Procedures - Incision and Drainage left axilla Time completed: 17:39 Type: Simple Anesthetic type: 1% Lidocaine mL's of anesthetic: 4 Blade size: 11 I&D procedure: Iodoform packing placed, Sterile dressing applied, Other Incision Method: Incision made by scalpel Discharge - Discharge Clinical Impression: Abscess of left axilla Condition: Stable Disposition: HOME, SELF-CARE Additional Instructions: ABSCESS: You have an abscess (boil). This a pus-forming infection, usually due to staph. Some boils may be left to drain on their own, but most require lancing. From the time the tender lump first appears, it may be three or four days before the abscess is ready to darrell. Local heat and rest help at this stage of treatment. An antibiotic may prevent spread of the infection. Once the abscess is opened, packing may be placed into it. This is done so pus is not sealed inside by premature closure of the cavity. The packing will be removed at your follow-up visit or you may be advised to remove it yourself at home. Sometimes this packing must be replaced a few times during healing. The wound will heal with surprisingly little scar. Depending on the size and location of an abscess, healing can take one to four weeks. You may shower and wash the area around the incision site two or three times a day. Antibiotics may be prescribed, but are usually not necessary after an abscess has been drained. If you develop fever, chills, worsening pain, or increasing swelling in the area, call the doctor or return immediately. POST INCISION AND DRAINAGE: You have had an incision made to allow drainage of an abscess. The incision must remain open so that pus and debris can drain from the wound. If the abscess cavity is large, packing is placed. This keeps the tissues from collapsing and trapping pus inside, while the body shrinks the cavity. The packing may need to be replaced every day or two. The physician will instruct you on the packing. Keep a bulky dressing over the area. Replace it if it becomes saturated with blood or pus. Do not disturb the packing (if present). You may shower and cleanse the area with gentle soap and warm water two or three times a day. Local warmth may be soothing, and may promote faster healing. Return if you develop high fever or chills, or if you note spreading redness, increasing swelling, or increasing tenderness. ORAL NARCOTIC MEDICATION: You have been given a prescription for pain control. This medication is a narcotic. It's best taken with food, as nausea can result if taken on an empty stomach. Don't operate machinery or drive within six hours of taking this medication. Do not combine this medicine with alcohol, or with any medication which can cause sedation (such as cold tablets or sleeping pills) unless you get permission from the physician. Narcotics tend to cause constipation. If possible, drink plenty of fluids and eat a diet high in fiber and fruits. CEPHALEXIN: The antibiotic you've been prescribed is a member of the cephalosporin class. This type of antibiotic covers a wide variety of infections, including those of the skin, lungs, and urinary tract. It's useful for staph infections. This antibiotic is slightly similar to the penicillin family. In rare cases , a person who is allergic to penicillin will also be allergic to this medication. If you have had a severe allergic reaction to penicillin, and have not taken this antibiotic since that time, notify your doctor. Antibiotics which cover many germs ("broad spectrum" antibiotics) are more likely to cause diarrhea or "yeast" infections. Women prone to vaginal yeast problems may suffer an attack after taking this antibiotic. In infants, oral thrush (white spots "stuck" on the cheek) or yeast diaper rash may result. See your doctor if these problems occur. Call at once if you develop itching, hives , shortness of breath, or lightheadedness. TRIMETHOPRIM-SULFA: You have been given a prescription for trimethoprim-sulfa (TMS, Septra, Bactrim). This is a combination antibiotic of the sulfa class, often used for urinary tract infections, middle ear infections, bronchitis, shigella intestinal infection, and Pneumocystis pneumonia. TMS is usually well-tolerated. Occasional side effects include nausea and decreased appetite. Septra is not recommended for infants less than two months of age. Do not take this medication if you have experienced severe side effects or allergy to sulfa medicine. You should stop this medicine at once and contact your physician if you develop any rash, joint pain, shortness of breath, bruising, or jaundice ( yellow color in the skin), or if you develop any other new or unusual symptoms. FOLLOW-UP CARE: Most simple abscesses will not require a follow up visit. If you had packing placed in the abscess, remove it as instructed by the physician. If you have been referred to a physician for follow-up care, call the physicians office for an appointment as you were instructed or within the next two days. If you experience worsening or a significant change in your symptoms, return to the Emergency Department at any time for re-evaluation. Return to the emergency room in 48 hours to have your abscess reexamined and possibly repacked. Prescriptions: Hydrocodone/Acetaminophen [[place] 5-325 mg Tablet] 1 tab PO Q6HP PRN #14 tablet PRN Reason: For Pain Ondansetron [Zofran Odt 4 mg Tablet] 4 mg PO Q6HP PRN #30 tab.rapdis PRN Reason: Cephalexin Monohydrate [Keflex 500 mg Capsule] 500 mg PO QID #20 capsule Sulfamethoxazole/Trimethoprim [Septra-Ds 800-160 mg Tablet] 1 tab PO BID #20 tablet
[2016-06-17] MEDS ORDERED: CEPHALEXIN 500 MG CAPSULE PO ONE (16:50)
[2016-06-17] MEDS ORDERED: SULFAMETHOXAZOLE/TRIMETHOPRIM 800-160 MG TABLET PO ONE (16:50)
[2016-06-17] MEDS ORDERED: OXYCODONE-ACETAMINOPHEN 5-325 MG TABLET PO ONE (16:50)
[2016-06-17] MEDS ORDERED: ONDANSETRON 4 MG TAB.RAPDIS PO ONE (16:56)
[2016-06-17] MEDS ORDERED: HYDROCODONE/ACETAMINOPHEN 10-325 MG TABLET PO ONE (16:56)
== END 2016-06-17 17:56 | disposition home or self-care (01) ==
LOC: ER 14:50
PROC: 0H9CXZZ Drainage of Left Upper Arm Skin, External Approach (ICD-10-PCS; principal; 2016-06-17)
DX: L02.412 Cutaneous abscess of left axilla (principal); Z88.0 Allergy status to penicillin; Z88.5 Allergy status to narcotic agent; F17.210 Nicotine dependence, cigarettes, uncomplicated; Z71.6 Tobacco abuse counseling
CPT/HCPCS: 10060; 99283; 87070; 87205; 87075; 87077; 87186; S0119; J3490

== ENCOUNTER 2016-06-19 12:12 | Emergency (ER) | payer MEDICAID ==
--- NOTE | 2016-06-19 12:21 | ER Document Report ---
ED Medical Screen (RME) - General Stated Complaint: WOUND RECHECK Notes: Patient had abscess under her left axilla drained 2 days ago. Is here for wound recheck. Patient is taking antibiotics as instructed. I have greeted and performed a rapid initial assessment of this patient. A comprehensive ED assessment and evaluation of the patient, analysis of test results and completion of the medical decision making process will be conducted by additional ED providers. TRAVEL OUTSIDE OF THE [place] IN LAST 30 DAYS: No - Related Data Allergies/Adverse Reactions: Penicillins Allergy (Severe, Verified 06/19/16 12:20) n and v,sob,hallucinations oxycodone HCl [From Percocet] Allergy (Intermediate, Verified 06/19/16 12:20) VOMITING acetaminophen [From Vicodin] Allergy (Verified 06/19/16 12:20) hydrocodone [From Vicodin] Allergy (Verified 06/19/16 12:20) Past Medical History Renal/ Medical History: Reports: Hx Kidney Stones. Denies: Hx Peritoneal Dialysis Skin Medical History: Reports Hx Cellulitis Psychiatric Medical History: Reports: Hx Depression Past Surgical History: Reports: Hx Section, Hx Cholecystectomy - Immunizations Immunizations up to date: Yes Hx Diphtheria, Pertussis, Tetanus Vaccination: Yes Physical Exam - Vital signs Vitals: Temp Pulse Resp BP Pulse Ox 98.6 F 64 18 130/80 H 100 06/19/16 12:19 06/19/16 12:19 06/19/16 12:19 06/19/16 12:19 06/19/16 12:19 - Skin Notes: Drainage to dressing noted to left axilla. Course - Vital Signs Vital signs: Temp Pulse Resp BP Pulse Ox 98.6 F 64 18 130/80 H 100 06/19/16 12:19 06/19/16 12:19 06/19/16 12:19 06/19/16 12:19 06/19/16 12:19
--- NOTE | 2016-06-19 14:07 | ER Document Report ---
HPI - HPI Patient complains to provider of: wound recheck Onset: Other - 2 days ago Onset/Duration: Better Quality of pain: Achy Pain Level: 1 Context: Patient had an abscess incision and drainage performed 2 days ago. The wound was packed. Patient states she has not changed the dressing although has applied more tape. Patient denies any fever. Associated Symptoms: Other - Abscess to left axilla. denies: Fever Exacerbated by: Movement Relieved by: Denies Similar symptoms previously: Yes Recently seen / treated by doctor: Yes - ROS ROS below otherwise negative: Yes Systems Reviewed and Negative: Yes All other systems reviewed and negative - CONSTITUTIONAL Constitutional: DENIES: Fever, Chills - NEURO Neurology: DENIES: Headache, Weakness - GASTROINTESTINAL Gastrointestinal: DENIES: Abdominal Pain, Nausea, Patient vomiting - REPRODUCTIVE Reproductive: DENIES: : - DERM Skin Color: Normal, [place] Notes: Wound to left axilla Past Medical History - General Information source: Patient - Social History Smoking Status: Current Every Day Smoker Chew tobacco use (# tins/day): No Frequency of alcohol use: None Drug Abuse: None Occupation: none Lives with: Family Family History: Arthritis, DM, Hyperlipidemia, Hypertension Patient has suicidal ideation: No Patient has homicidal ideation: No Renal/ Medical History: Reports: Hx Kidney Stones. Denies: Hx Peritoneal Dialysis Skin Medical History: Reports Hx Cellulitis Psychiatric Medical History: Reports: Hx Depression Past Surgical History: Reports: Hx Section, Hx Cholecystectomy - Immunizations Immunizations up to date: Yes Hx Diphtheria, Pertussis, Tetanus Vaccination: Yes Vertical Provider Document - CONSTITUTIONAL Agree With Documented VS: Yes Exam Limitations: No Limitations General Appearance: WD/WN, No Apparent Distress - INFECTION CONTROL TRAVEL OUTSIDE OF THE [place] IN LAST 30 DAYS: No - HEENT HEENT: Atraumatic, Normocephalic - NECK Neck: Normal Inspection, Supple - RESPIRATORY Respiratory: Breath Sounds Normal, No Respiratory Distress O2 Sat by Pulse Oximetry: 100 - CARDIOVASCULAR Cardiovascular: Regular Rate, Regular Rhythm, No Murmur Pulses: Normal: Radial - BACK Back: Normal Inspection - MUSCULOSKELETAL/EXTREMETIES Musculoskeletal/Extremeties: JENNIFER HERNANDEZ - NEURO Level of Consciousness: Awake, Alert, Appropriate Motor/Sensory: No Motor Deficit - DERM Integumentary: Warm, Dry, Abscess - Resolving abscess to left axilla, no surrounding erythema. Course - Re-evaluation Re-evalutation: 06/19/16 14:08 Packing removed from axillary wound. Patient tolerated well - Vital Signs Vital signs: Temp Pulse Resp BP Pulse Ox 98.6 F 64 18 130/80 H 100 06/19/16 12:19 06/19/16 12:19 06/19/16 12:19 06/19/16 12:19 06/19/16 12:19 - Laboratory Laboratory results interpreted by me: 06/19/16 14:08 Reviewed cultures from previous ER visit Discharge - Discharge Clinical Impression: Encounter for wound re-check Condition: Stable Disposition: HOME, SELF-CARE Instructions: Abscess ([facility]), Dressing Instructions for Open Wounds ([facility]), Antibiotic Therapy ([facility]), Warm Packs ([facility]) Additional Instructions: Return immediately for any new or worsening symptoms Followup with your primary care provider, call tomorrow to make a followup appointment Continue taking antibiotics as previously prescribed Keep wound covered as it continues to heal Referrals: [facility] [Provider Group] - Follow up as needed
[2016-06-19 14:19] VITALS: BP 125/75
== END 2016-06-19 14:19 | disposition home or self-care (01) ==
LOC: ER 12:12
DX: Z48.01 Encounter for change or removal of surgical wound dressing (principal); L02.412 Cutaneous abscess of left axilla; F17.200 Nicotine dependence, unspecified, uncomplicated
CPT/HCPCS: 99282